=== PATIENT | female | born 1985 | race Caucasian/White ===

== ENCOUNTER 2024-11-14 20:14 | Emergency (ER) | payer OTHER ==
[~2024-11-14] VITALS: Ht 177.8 cm; Wt 100.0 kg
[2024-11-14 20:16] VITALS: TEMP 36.3; O2SAT 100
[2024-11-14] MEDS: HYDROCODONE/ACETAMINOPHEN 7.5/325MG TABLET PO ONE (21:05)
[2024-11-14 21:36] LABS: HCG SCREEN NEGATIVE
[2024-11-14] MEDS: KETOROLAC 15MG/ML VIAL IM ONE (21:40)
[2024-11-14] MEDS: LIDOCAINE 5% PATCH TOP SCH (21:40)
[2024-11-15 00:08] VITALS: BP 155/68; PULSE 76; RESP 14; O2SAT 100
== END 2024-11-14 23:50 | disposition home or self-care (01) ==
LOC: ER 20:14
DX: S34.21XA Injury of nerve root of lumbar spine, initial encounter (principal); M54.59 Other low back pain; W19.XXXA Unspecified fall, initial encounter; Y93.89 Activity, other specified; Y92.89 Other specified places as the place of occurrence of the external cause; Y99.8 Other external cause status
CPT/HCPCS: 84703; 73502; 72131; 96372; 99285; J1885; Z7610